=== PATIENT | female | born 2000 | race Caucasian/White ===

== ENCOUNTER 2018-01-12 09:57 | Emergency (ER) | payer OTHER ==
[2018-01-12 14:10] VITALS: BP 112/64
[2018-01-12] MEDS ORDERED: Ibuprofen TAB* 600 MG PO ONE (14:38)
[2018-01-12] MEDS ORDERED: Lidocaine 2% VISCOUS* 15 ML UDC SWISH SPIT ONE (14:40)
--- NOTE | 2018-01-12 14:43 | UC ---
Skin Complaint HPI - HPI Summary HPI Summary: 17 y/o female presents to the urgent care c/o chin and lower lip abrasion s/p fall on ice this morning around 0900AM. Pt also reports mild abrasion on the inside of her lower lip and she thinks she shipped one of her frontal tooth. Pt denies LOC or injuring other part of her body. She had mild bleeding at the moment which has stopped by now. Pain has decrease to 3/10 and is at touch. Pt denies SOB, RODAS, dizziness, neck pain, abdominal pain, chest pain N/V/D. Pt is UTD w/ all vaccines for her age - History of Current Complaint Chief Complaint: UCSkin Time Seen by Provider: 01/12/18 14:22 Stated Complaint: FACIAL INJURY Hx Obtained From: Patient Hx Last Menstrual Period: 12/23/2017 Onset/Duration: Sudden Onset, Lasting Hours - 5 hrs ago, Still Present Skin Exposure Onset/Duration: Hours Ago - 5 hrs Timing: Constant Onset Severity: Moderate Current Severity: Mild Pain Intensity: 3 Pain Scale Used: 0-10 Numeric Location: Discrete - Lower lip and chin and shiiped front upper tooth Aggravating Factor(s): Touch Alleviating Factor(s): Cold Associated Signs & Symptoms: Positive: Bruising, Tenderness. Negative: Nausea, Vomiting, Numbness, Fever Related History: Trauma - falling on ice this morning and inuring her mouth - Allergy/Home Medications Allergies/Adverse Reactions: Allergies Allergy/AdvReac Type Severity Reaction Status Date / Time No Known Allergies Allergy Verified 01/12/18 11:15 Review of Systems Constitutional: Negative Skin: Bruising - Lower lip and chin w/ abrasions and inside on her gum too and a chiiped frontal upper tooth Eyes: Negative ENT: Negative Respiratory: Negative Cardiovascular: Negative Gastrointestinal: Negative Genitourinary: Negative Motor: Negative Neurovascular: Negative Musculoskeletal: Negative Neurological: Negative Psychological: Negative Is Patient Immunocompromised?: No All Other Systems Reviewed And Are Negative: Yes PMH/Surg Hx/FS Hx/Imm Hx Previously Healthy: Yes - Pt denies PMHX - Surgical History Surgical History: Yes Surgery Procedure, Year, and Place: 2016 WISDOM TEETH - Family History Known Family History: Positive: Hypertension - Social History Occupation: Student Lives: Dormitory/Roommates Alcohol Use: None Substance Use Type: None Smoking Status (MU): Never Smoked Tobacco - Immunization History Vaccination Up to Date: Yes Physical Exam Triage Information Reviewed: Yes Vital Signs: Initial Vital Signs Temp 99.1 F 01/12/18 11:16 Pulse 80 01/12/18 11:16 Resp 16 01/12/18 11:16 BP 103/65 01/12/18 11:16 Pulse Ox 100 01/12/18 11:16 - Additional Comments Vital Signs Reviewed: Yes General: well developed, well nourished female sitting in the examining table w/ o any apparent distress -Head: atraumatic, no palpable deformities. -Eyes: PERRLA, EOMI, no periorbital ecchymosis, step-off, deformity, subq air, -Ears: TMs clear, no hemotympanum or Battles sign, no perforation. -Nose: NT, no swelling, no epistaxis, or septal hematoma. Facial bones symmetric ; no flattening of malar prominences. NT to palpation and stable with attempts at manipulation. -Mouth/Throat: no intraoral trauma. Teeth and mandible intact. No malocclusions. Neck: No point tenderness, step-off, deformity to firm palpation of the cervical spine at the midline. No spasm or paraspinal muscle tenderness. FROM w/ out limitation or pain. Respiratory: Positive: Chest non-tender, Lungs clear, Normal breath sounds, No respiratory distress Cardiovascular: Positive: RRR, No Murmur, Pulses Normal, Brisk Capillary Refill Abdomen Description: Positive: Nontender, No Organomegaly, Soft. Negative: CVA Tenderness (R), CVA Tenderness (L) Bowel Sounds: Positive: Present Musculoskeletal: Positive: Strength Intact, ROM Intact, No Edema Neurological: Positive: Alert, Muscle Tone Normal Psychological Exam: Normal Skin: Positive: Positive superficial abrasion below the lower lips and another around chin w/ mild ecchymosis and bruising. Inside the lower lip of buccal mucosa w/ also a superficial abrasion, mild tenderness on palpation, no bleeding observed. Frontal tooth #8 on the upper jaw w/ mildly fractured at the tip, tooth in placed.. Mild swelling around the chin. Course/Dx - Course Course Of Treatment: 17 y/o female presents to the urgent care c/o chin and lower lip abrasion s/p fall on ice this morning around 0900AM. Pt also reports mild abrasion on the inside of her lower lip and she thinks she shipped one of her frontal tooth. Pt denies LOC or injuring other part of her body. She had mild bleeding at the moment which has stopped by now. Pain has decrease to 3/10 and is at touch. Pt denies SOB, RODAS, dizziness, neck pain, abdominal pain, chest pain N/V/D. Pt is UTD w/ all vaccines for her age. Hx obtained. Positive superficial abrasion below the lower lips and another around chin w/ mild ecchymosis and bruising. Inside the lower lip of buccal mucosa w/ also a superficial abrasion, mild tenderness on palpation, no bleeding observed. 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 Mild swelling around the chin. Hx obtained. Pt w/ Chin contusion and chin abrassionon examination. #8th tooth is in palced mildly fractured at the tip.Abrassion irrigated w/ saline watered and cleaned. Topical bacitracin applied over the chin. Pt given Ibuprofen PO to alleviated symptoms. Medication sent to pharmacy. Pt advised to f/u w/ Dentist. List provided if symptoms worsen for further treatment. Pt understood and agreed w/ plan of care. Left the clinic ambulating and hemodynamically stable. - Differential Diagnoses - Skin Complaint Differential Diagnoses: Other - abrasion, laceration, contusion - Diagnoses Provider Diagnoses: 1- superficial chin abrasion s/p fall. 2- chin contusion s/ p fall. 3-#8th toothache s/p fall Discharge - Discharge Plan Condition: Stable Disposition: HOME Prescriptions: Bacitracin OINTMENT* 1 applic TOPICAL BID #1 tube Ibuprofen TAB* [Motrin TAB* 800 MG] 800 mg PO Q6H PRN #20 tab PRN Reason: Pain Patient Education Materials: Acute Dental Trauma (ED), Abrasion (ED) Referrals: [facility] [place]] - 2 Days Additional Instructions: 1-Please apply topical antibiotic over the wound. Keep wound clean and dry 2-Take Ibuprofen PO q6-8hrs prn for pain or swelling. 3- F/u w/ your dentist or one from the listed provided if you continue w/ toothache for further evaluation and treatment. 4- If you develop fever or redness around abrasion despite Bacitracin oint please return to the Urgent care or f/u with PCP for further treatment
== END 2018-01-12 15:11 | disposition home or self-care (01) ==
LOC: UCEAST 09:57
DX: S00.81XA Abrasion of other part of head, initial encounter (principal); S00.511A Abrasion of lip, initial encounter; S00.83XA Contusion of other part of head, initial encounter; W00.0XXA Fall on same level due to ice and snow, initial encounter; Y93.9 Activity, unspecified; Y92.9 Unspecified place or not applicable; K08.89 Other specified disorders of teeth and supporting structures
CPT/HCPCS: 99202; A9270-GY; G0463